=== PATIENT | male | born 1955 | race African-American/Black ===

== ENCOUNTER 2018-09-02 11:41 | Emergency (ER) | payer OTHER ==
[2018-09-02 12:54] VITALS: BP 127/71; PULSE 98; TEMP 98.6; BMI 17.7
--- NOTE | 2018-09-02 13:25 | PDOC ---
Documentation entered by Cydney Woodward SCRIBE, acting as scribe for Ladan Marie MD. Ladan Marie MD: This documentation has been prepared by the Crissy smith Adrianna, SCRIBE, under my direction and personally reviewed by me in its entirety. I confirm that the documentation accurately reflects all work, treatment, procedures, and medical decision making performed by me. Attending Attestation - Resident Resident Name: Michael Anderson - ED Attending Attestation I have performed the following: I have examined & evaluated the patient, The case was reviewed & discussed with the resident, I agree w/resident's findings & plan, Exceptions are as noted - HPI HPI: 09/02/18 13:11 63 yo male h/o HTN, HLD, hep C, schizophrenia, afib, cervical discitis s/p spinal surgery 07/20/2018 hospital here from [facility]. states he has a trauma one week ago. per nursing facility, states pt had an iv pole fall on his head 6 days ago, then complainted or told someone about it 2 days following. 08/30. they were trying to arrange an outpt ct head, but wasn't getting approved so sent to ed for ct head. per nursing. pt is to be wearing his cervcial collar since his surgery but he refuses to wear it often, only wears it when he gets out of bed. also intermittently refuses medications, is taking bActrim DS for discitis but sometimes refuses it. pt is currently complaining of pain from his collar. no new weakness or change to mental status. - Physicial Exam PE: 09/02/18 13:22 awake alert head atraumatic. collar in place. lungs clear bilaterally heart rrr no mrg abd soft nt nd ext wwp. 5/5 all four ext. sensatio intact, speech is clear. - Medical Decision Making 09/02/18 13:23 63 yo h/o spinal surgery, schizophrnia, htn hld here with minor head trauma one week ago. plan ct head, cervical spine. pain control as needed. pt intermittently refusing to stay for ct , requesting to leave ama. after much discussion pt finally agreeable to testing. d/w [facility]. will transfer pt back to nursing facility per his request. refusing to stay for results. 09/02/18 13:44 EXAM#: TYPE/EXAM: RESULT: [id number] CT/HEAD CT WITHOUT CONTRAST Status post fall IMPRESSION: Slightly limited examination. [id number] volume loss without gross evidence of acute intracranial pathology. Correlate clinically for further evaluation and follow-up. Reported By: Kirby Barclay MD 09/02/18 13:35 EXAM#: TYPE/EXAM: RESULT: [id number] CT/CERVICAL SPINE CT W/O CONTR CT IMPRESSION: There is mild reversal of the cervical spine curvature. Status post posterior fusion of C2-C6 level. Mild anterolisthesis of C3 over C4, grade 1. Otherwise, no gross acute fracture or prevertebral soft tissue swelling are identified Marked degenerative disc disease at C3-C4 with irregularity of the corresponding endplates, likely degenerative. Moderate to marked degenerative disc disease at C4-C5 level with irregularity of the corresponding endplates, likely degenerative. Differential diagnosis for irregularity of the vertebral endplates includes an infectious process/ discitis. Correlate clinically for further evaluation. No prior is available for comparison. There is mild compression/anterior wedging of C4 vertebral body, likely chronic. Moderate degenerative disc disease at C6-C7 and C7-T1 Reported By: Kirby Barclay MD 09/02/18 13:35 09/02/18 13:[address] head [address]able. ct cervical spine with discitis (known) and post fusion. pt on abx currently known diagnosis. will dc back to [facility].
--- NOTE | 2018-09-02 13:51 | PDOC ---
History of Present Illness - General Chief Complaint: Injury Stated Complaint: FALL Time Seen by Provider: 09/02/18 11:55 History Source: Patient Exam Limitations: No Limitations - History of Present Illness Initial Comments: 63 yo M w a hx of HTN, HLD, hep C, schizophrenia, afib, cervical discitis s/p spinal surgery 07/20/2018 hospital here from [facility] because an IV pole fell on the patient's head 6 days ago on Thursday. The patient states he was unhappy that no-one took him to have imaging done on his head. He denies having a headache, nausea, vomiting, blurry vision, worsening of pain or other concerns. The patient is wearing a C-spine collar from a prior neck surgery. The patient has been prescribed bactrim for his suspected neck discitis. PCP: Torin Barrett PSH: Neck surgery Allergies: NKA, NKDA Social Hx: Denies currently smoking, drinking, or other substance usage. Past History - Past Medical History Allergies/Adverse Reactions: Allergies Allergy/AdvReac Type Severity Reaction Status Date / Time No Known Allergies Allergy Verified 09/02/18 12:57 Home Medications: Ambulatory Orders Acetaminophen [Pain Relief] 650 mg PO QID PRN 09/02/18 Aspirin [ASA -] 81 mg PO DAILY 09/02/18 Atorvastatin Ca [Lipitor] 20 mg PO HS 09/02/18 Carvedilol 3.125 mg PO BID 09/02/18 Famotidine 20 mg PO DAILY 09/02/18 Folic Acid 1 mg PO DAILY 09/02/18 Gabapentin 300 mg PO QID 09/02/18 Lactobacillus Acidophilus [Bacid -] 1 each PO BID 09/02/18 Lactulose 10 gm PO TID 09/02/18 Lisinopril 5 mg PO DAILY 09/02/18 Multivitamin [Multiple Vitamins] 1 each PO DAILY 09/02/18 Polyethylene Glycol 3350 [Clearlax] 17 gm PO BID 09/02/18 Rivaroxaban [Xarelto -] 20 mg PO DAILY 09/02/18 Sennosides [Senna] 17.2 mg PO BID 09/02/18 COPD: No - Suicide/Smoking/Psychosocial Hx Smoking History: Unknown if ever smoked Review of Systems - Review of Systems Able to Perform ROS?: Yes Comments:: CONSTITUTIONAL: Absent: fever, no chills, no fatigue EYES: Absent: visual changes ENT: Absent: ear pain, no sore throat CARDIOVASCULAR: Absent: chest pain, no palpitations RESPIRATORY: Absent: cough, no SOB GI: Absent: abdominal pain, no nausea, no vomiting, no constipation, no diarrhea GENITOURINARY: Absent: dysuria, no frequency, no hematuria MUSKULOSKELETAL: Present: Arthralgia Absent: back pain, no myalgia SKIN: Absent: rash NEURO: Absent: headache *Physical Exam - Vital Signs Last Vital Signs Temp Pulse Resp BP Pulse Ox 98.6 F 98 H 19 127/71 99 09/02/18 11:55 09/02/18 11:55 09/02/18 11:55 09/02/18 11:55 09/02/18 11:55 - Physical Exam Comments: GENERAL: Well-appearing, well-nourished. No apparent distress. HEENT: Normocephalic, atraumatic. PERRL, EOM intact. CARDIOVASCULAR: Normal S1, S2. Regular rate and rhythm. PULMONARY: No evidence of respiratory distress. Lungs clear to auscultation bilaterally. No wheezing, rales or rhonchi. ABDOMEN: Soft, non-distended, non-tender. EXTREMITIES: Normal ROM in all four extremities. No gross deformities. SKIN: Warm, dry. No rash NEUROLOGICAL: No focal neurological deficits. ED Treatment Course - RADIOLOGY Radiology Studies Ordered: Category Date Time Status CERVICAL SPINE CT W/O CONTR [CT] Stat CT Scan 09/02/18 12:[address] WITHOUT CONTRAST [CT] Stat CT Scan 09/02/18 12:01 Completed Medical Decision Making - Medical Decision Making 63 yo M w a hx of HTN, HLD, hep C, schizophrenia, afib, cervical discitis s/p spinal surgery 07/20/2018 hospital here from [facility] because an IV pole fell on the patient's head 6 days ago on Thursday. The patient states he was unhappy that no-one took him to have imaging done on his head. He denies having a headache, nausea, vomiting, blurry vision, worsening of pain or other concerns. The patient is wearing a C-spine collar from a prior neck surgery. The patient has been prescribed bactrim for his suspected neck discitis. VS: WNL DDx IBNLT: Brain/neck injury Plan: Head/neck CT Head/neck CT shows no acute pathology other than known disciitis for which patient is already receiving Abx. Patient refuses further care and wants to sign out AMA back to his longterm. *DC/Admit/Observation/Transfer Diagnosis at time of Disposition: Headache - Discharge Dispostion Disposition: HOME Condition at time of disposition: Stable Decision to Admit order: No - Referrals Referrals: Nena Harkins MD [Primary Care Provider] - - Patient Instructions Printed Discharge Instructions: How to Prevent Falls Additional Instructions: Please make sure to follow up with your PCP in the next 3 to 5 days. Come back to the ER immediately if you experience any worsening symptoms or concerns including a headache, confusion, neck pain, nausea or vomiting. Print Language: UPPER SORBIAN - Post Discharge Activity
== END 2018-09-02 16:25 | disposition home or self-care (01) ==
LOC: JER 11:41
DX: R51 Headache (principal); W20.8XXA Other cause of strike by thrown, projected or falling object, initial encounter; Y93.89 Activity, other specified; Y92.128 Other place in nursing home as the place of occurrence of the external cause; M46.42 Discitis, unspecified, cervical region; Z79.2 Long term (current) use of antibiotics; I48.91 Unspecified atrial fibrillation; Z79.01 Long term (current) use of anticoagulants; I10 Essential (primary) hypertension; E78.5 Hyperlipidemia, unspecified; B18.2 Chronic viral hepatitis C; F20.9 Schizophrenia, unspecified; Z98.890 Other specified postprocedural states
CPT/HCPCS: 70450-TC; 72125-TC; 99281-25